=== PATIENT | female | born 1980 | race Caucasian/White ===

== ENCOUNTER 2017-08-05 10:17 | Emergency (ER) | payer BC ==
[~2017-08-05] VITALS: Ht 160 cm; Wt 84.0 kg
[2017-08-05 10:24] VITALS: BP 117/79
== END 2017-08-05 16:06 | disposition left against medical advice (07) ==
LOC: ER 13:30
DX: O26.891 Other specified pregnancy related conditions, first trimester (principal); R10.9 Unspecified abdominal pain; R10.2 Pelvic and perineal pain; Z3A.01 Less than 8 weeks gestation of pregnancy; Z53.21 Procedure and treatment not carried out due to patient leaving prior to being seen by health care provider